=== PATIENT | female | born 1950 | race Caucasian/White ===

== ENCOUNTER 2017-10-12 21:18 | Inpatient (IN) | payer OTHER ==
[~2017-10-12] VITALS: Ht 160 cm; Wt 111.6 kg
--- NOTE | ~2017-10-12 | H ---
[facility] [place] [address] HISTORY AND PHYSICAL Name: CLAUDIO RAE Room #: 241-P ADM IN M.R.#: [id number] Admission: 10/13/17 Attend Phys: Jeronimo Gutierrez MD Discharge: Date of : 48 Report #: [id number] THIS REPORT FOR: //name// CC: Jeronimo Gutierrez [facility] physician/PCP ATTENDING PHYSICIAN: Jeronimo Gutierrez MD PRIMARY CARE PHYSICIAN: Unknown. CHIEF COMPLAINT: Sepsis. HISTORY OF PRESENT ILLNESS: The patient is a 67-year-old female who was initially admitted to [facility] with complaints of elevated blood sugar. She had a blood sugar in the 400, so she went to the ER, she also was having multiple episodes of diarrhea. She was evaluated in the ER there and met sepsis criteria. She was given vancomycin and Zosyn and her blood pressure was low, so she was started on Levophed after multiple IV fluid boluses. She denies having a cough or congestion. Denies fevers or chills. She has been feeling some nausea along with the diarrhea that started earlier today. She has had at least 4 episodes of loose stools. She recently traveled to [place] over the holidays and was with family from September 25 through October 11 and she denies any ill contacts there other than through their plane travel. She did have a central line placed in [place] and was transferred here for further treatment. She denies any history of kidney problems, her creatinine was elevated up to 2.2. She is having some abdominal tenderness mainly in the left lower quadrant and epigastric area. She denies any history of pancreatitis. She arrived to [facility] in the ICU and is currently somewhat sleepy, but very arousable and able to answer questions appropriately, and is in no acute distress. PAST MEDICAL HISTORY: Diabetes, anxiety, depression, hypertension, hyperlipidemia, foot ulcer, neuropathy, scoliosis, and degenerative disk disease. PAST SURGICAL HISTORY: Hysterectomy, cholecystectomy, tonsillectomy, right oophorectomy, left foot and left ankle repair, . ALLERGIES: ERYTHROMYCIN. HOME MEDICATIONS: Atorvastatin 10 mg at bedtime, spironolactone 25 mg b.i.d., ibuprofen 200 mg b.i.d., gabapentin 300 mg t.i.d., amitriptyline 10 mg b.i.d., Wellbutrin 150 mg b.i.d., Celexa 20 mg daily, Lasix 40 mg b.i.d., vitamin D 1000 units daily, and potassium 20 mEq b.i.d. SOCIAL HISTORY: The patient drinks alcohol occasionally, she is a never smoker, denies any drug use. She lives alone in [place]. She does have three growing [facility] [address] [place] [address] HISTORY AND PHYSICAL Name: CLAUDIO RAE Room #: 241-P [facility] IN .R.#: [id number] Admission: 10/13/17 Attend Phys: Jeronimo Gutierrez MD Discharge: Date of : 48 Report #: [id number] children. She uses a walker to ambulate or wheelchair. FAMILY HISTORY: Her mother, father, brother and sister are all diabetic. Her sister had breast cancer. Her father had of small-bowel cancer. REVIEW OF SYSTEMS: The patient does have some chronic lower extremity edema, which she says is usually worse on the left ankle area where she had multiple pins and plates placed. All other 12-point review of systems was reviewed with the patient, otherwise negative unless stated in the HPI. PHYSICAL EXAMINATION: GENERAL: The patient is somewhat sleepy, but easily arousable female, in no acute distress. VITAL SIGNS: Temperature 98.2, heart rate is 72, respirations 16, and blood pressure is 110/70 on 3 mcg of Levophed. HEENT: PERRLA. Sclerae are nonicteric. Oral mucosa is pink and moist. NECK: Supple. No JVD noted. CARDIAC: Normal S1, S2. No murmurs, rubs, or gallops. RESPIRATORY: Breath sounds are clear bilaterally. No wheezing or rhonchi. Breathing is nonlabored. ABDOMEN: Soft. She is obese. She is mildly tender in the epigastric and left lower quadrants. Bowel sounds are hypoactive. VASCULAR: She does have 2+ bilateral lower extremity edema, slightly worse around the left ankle. Pedal pulses are 1+. Feet are somewhat cool. No mottling. NEUROLOGIC: The patient is somewhat sleepy and does doze multiple times during mid assessment, but did arouse easily each time, she is oriented and able to answer questions appropriately. She is able to move all extremities equally. No focal weakness noted. No facial asymmetry. LABS AND DIAGNOSTICS: Blood work drawn at [place] initially showed a sodium of 129, potassium 6.3, and a creatinine of 2.2 with a glucose of 421. Lipase 505, lactate of 4.2. LFTs were normal. BNP was normal at 92. UA was negative. Chest x-ray was reported as negative. CBC done here showed a WBC of 18.2, 13.2 of hemoglobin, and platelets 179. ASSESSMENT AND PLAN: 1. Sepsis. At this point, etiology is not clear. She did have diarrhea earlier today. We will check stool for Clostridium difficile. We will also check a CT of the abdomen since she is having some left lower quadrant pain and epigastric pain. We will continue with broad antibiotics including vancomycin and Zosyn. She was hypotensive at [place] and has been started on Levophed, which we will try to wean off. Continue with IV fluid and follow blood culture results. 2. Acute kidney injury. The patient denies any prior kidney problems, but we do not have any previous records. Continue with hydration and follow labs. We [facility] [address] [address] HISTORY AND PHYSICAL Name: CLAUDIO RAE Room #: 241-P [facility] IN [facility].#: [id number] Admission: 10/13/17 Attend Phys: Jeronimo Gutierrez MD Discharge: Date of : 48 Report #: [id number] will hold her home doses of spironolactone and Lasix and the potassium supplement. Potassium did come to normal after treatment at [place]. Hold potassium supplement and follow labs. 3. Pancreatitis. She does have some epigastric pain. We will continue with IV fluids. We will allow clear liquids since she is not having much pain. Repeat a lipase in the morning and further evaluate on CT of the abdomen. 4. Diarrhea. Stool will be sent for Clostridium difficile. 5. Diabetes, this is uncontrolled. Check hemoglobin A1c and add sliding scale insulin. It does not look like she is on any home medications for diabetes. 6. Anxiety and depression. Continue home meds. 7. Deep venous thrombosis prophylaxis. Place sequential compression devices. We will continue to follow the patient closely throughout the hospitalization and make changes based on clinical status. <ELECTRONICALLY SIGNED> By: PAMELLA Echeverria 10/13/17 [id number] PAMELLA Echeverria /nt
[2017-10-13] VITALS (64 sets, daily range): BP systolic 81–130; BP diastolic 39–76
[2017-10-13 00:35] LABS: CALCIUM 7.7 mg/dL (8.5-10.1); CREATININE 1.9 mg/dL (0.6-1.0); POTASSIUM 4.7 mmol/L (3.5-5.1)
[2017-10-13 01:06] LABS: ABSOLUTE NEUTROPHILS 13.9 thou/uL (1.4-8.2); BASOPHILS 0.4 % (0.0-2.0); EOSINOPHILS 0.8 % (0.0-3.0); HEMATOCRIT 39.6 % (37.0-47.0); HEMOGLOBIN 13.2 gm/dL (12.0-15.0); LYMPHOCYTES 16.4 % (24.0-44.0); MCH 28.6 pg (26.0-34.0); MCHC 33.4 g/dL (28.0-37.0); MCV 85.5 fL (80.0-100.0); MONOCYTES 6.4 % (1.0-8.0); PLATELET COUNT 179 thou/uL (150-400); RBC 4.63 mil/uL (4.20-5.00); RDW 13.7 % (10.5-14.5); WBC 18.2 thou/uL (4.0-11.0)
[2017-10-13] MEDS ORDERED: VITAMIN D1000 UNI1 (02:46)
[2017-10-13] MEDS ORDERED: AMITRIPTYLINE H10 M3 (02:47)
[2017-10-13] MEDS ORDERED: ATORVASTATIN CA10 MG (02:48)
[2017-10-13] MEDS ORDERED: WELLBUTRIN SR100 MG (02:52)
[2017-10-13] MEDS ORDERED: POTASSIUM20 (02:57)
[2017-10-13] MEDS ORDERED: CELEXA20 MG (02:59)
[2017-10-13] MEDS ORDERED: IBUPROFEN 200200 M1 (03:01)
[2017-10-13] MEDS ORDERED: ALDACTONE25 MG PO (03:01)
[2017-10-13] MEDS ORDERED: NEURONTIN 300300 M1 PO (03:02)
[2017-10-13] MEDS ORDERED: LASIX 40 MG TAB40 M2 (03:03)
[2017-10-14] VITALS (13 sets, daily range): BP systolic 104–133; BP diastolic 47–107
[2017-10-14 04:09] LABS: GLYCOHEMOGLOBIN (HGB A1C) 10.7 % (4.8-5.6)
[2017-10-14 04:59] LABS: BASOPHILS 1.1 % (0.0-2.0); EOSINOPHILS 3.5 % (0.0-3.0); HEMATOCRIT 33.6 % (37.0-47.0); HEMOGLOBIN 11.4 gm/dL (12.0-15.0); LYMPHOCYTES 33.6 % (24.0-44.0); MCH 29.5 pg (26.0-34.0); MCHC 33.8 g/dL (28.0-37.0); MONOCYTES 7.2 % (1.0-8.0); PLATELET COUNT 150 thou/uL (150-400); POLYS 54.6 % (36.0-66.0); RBC 3.85 mil/uL (4.20-5.00); RDW 13.4 % (10.5-14.5); WBC 9.1 thou/uL (4.0-11.0)
[2017-10-14 05:06] LABS: ALBUMIN 2.4 g/dL (3.4-5.0); POTASSIUM 4.7 mmol/L (3.5-5.1); TOTAL BILIRUBIN 0.5 mg/dL (<0.1-1.0); TOTAL PROTEIN 5.5 g/dL (6.4-8.2)
[2017-10-15 04:36] VITALS: BP 111/55
[2017-10-15 05:37] LABS: ABSOLUTE NEUTROPHILS 3.8 thou/uL (1.4-8.2); BASOPHILS 0.7 % (0.0-2.0); EOSINOPHILS 4.9 % (0.0-3.0); HEMATOCRIT 33.5 % (37.0-47.0); HEMOGLOBIN 11.2 gm/dL (12.0-15.0); LYMPHOCYTES 37.6 % (24.0-44.0); MCH 29.2 pg (26.0-34.0); MCHC 33.5 g/dL (28.0-37.0); MCV 87.4 fL (80.0-100.0); MONOCYTES 7.9 % (1.0-8.0); PLATELET COUNT 146 thou/uL (150-400); POLYS 48.9 % (36.0-66.0); RBC 3.84 mil/uL (4.20-5.00); RDW 13.5 % (10.5-14.5); WBC 7.7 thou/uL (4.0-11.0)
[2017-10-15 05:54] LABS: CALCIUM 8.8 mg/dL (8.5-10.1); POTASSIUM 4.2 mmol/L (3.5-5.1)
[2017-10-15 07:30] VITALS: BP 122/62
[2017-10-15] MEDS ORDERED: PROBIOTIC1 EAC1 PO (10:33)
[2017-10-15] MEDS ORDERED: FLAGYL500 MG PO (10:33)
[2017-10-15] MEDS ORDERED: LEVEMIR SUBQ (10:33)
[2017-10-15] MEDS ORDERED: NOVOLOG100 UNIT/1 SUBQ (10:33)
[2017-10-15] MEDS ORDERED: HUMALOG KW200 UNIT/1 SUBQ (10:33)
[2017-10-15] MEDS ORDERED: GLUCOPHAGE1000 MG PO (10:33)
[2017-10-15 14:19] VITALS: BP 122/62
[2017-10-15 14:26] VITALS: BP 122/62
== END 2017-10-15 18:00 | disposition home health service (06) | DRG 871 ==
LOC: ICU 21:18 → 4E 10-13 00:04
PROVIDERS: Hospitalist; Nurse Practitioner Acute Care
DX: A41.9 Sepsis, unspecified organism (principal); K85.90 Acute pancreatitis without necrosis or infection, unspecified; N17.9 Acute kidney failure, unspecified; F41.9 Anxiety disorder, unspecified; F32.9 Major depressive disorder, single episode, unspecified; I10 Essential (primary) hypertension; K52.9 Noninfective gastroenteritis and colitis, unspecified; E78.5 Hyperlipidemia, unspecified; E11.40 Type 2 diabetes mellitus with diabetic neuropathy, unspecified; M41.9 Scoliosis, unspecified; E11.65 Type 2 diabetes mellitus with hyperglycemia; I95.9 Hypotension, unspecified; Z79.4 Long term (current) use of insulin; Z90.710 Acquired absence of both cervix and uterus; Z90.49 Acquired absence of other specified parts of digestive tract; Z90.721 Acquired absence of ovaries, unilateral; Z88.1 Allergy status to other antibiotic agents
CPT/HCPCS: 10078; 10183